=== PATIENT | female | born 1985 | race Caucasian/White ===

== ENCOUNTER 2019-11-14 22:13 | Inpatient (IN) | payer OTHER ==
[~2019-11-14] VITALS: Ht 165.1 cm; Wt 72.6 kg
[~2019-11-14 22:13] MED LIST: RINGERS SOLUTION,LACTATED 1,000 ML IV ONE
[2019-11-14] MEDS ORDERED: METOCLOPRAMIDE HCL 5 MG/ML 2 ML VIAL IVP ONE (22:15)
[2019-11-14] MEDS ORDERED: CITRIC ACID/SODIUM CITRATE 30 ML SOLUTION UDCUP PO ONE (22:15)
[2019-11-14 22:43] LABS: BASOPHILS % (AUTO) 0.5 % (0.0-2.0); EOSINOPHILS % (AUTO) 2.9 % (1.0-6.0); HEMATOCRIT 42.2 % (36-46); LYMPHOCYTES # (AUTO) 2.3 K/uL (1.0-4.8); LYMPHOCYTES % (AUTO) 27.8 % (22.0-44.0); MEAN CORPUSCULAR HEMOGLOBIN 32.2 pg (26.0-34.0); MEAN CORPUSCULAR HGB CONC 33.1 G/dL (31.0-37.0); MEAN CORPUSCULAR VOLUME 97 fL (80-100); MONOCYTES # (AUTO) 1.1 K/uL (0.1-1.0); MONOCYTES % (AUTO) 13.4 % (2.0-9.0); NEUTROPHILS # (AUTO) 4.5 K/uL (1.8-7.7); NEUTROPHILS % (AUTO) 55.4 % (40.0-70.0); PLATELET COUNT (AUTO) 145 K/uL (150-450); RED BLOOD CELL COUNT(AUTO) 4.34 MIL/uL (4.00-5.20); RED CELL DISTRIBUTION WIDTH 14.1 % (11.5-14.5)
[2019-11-15 00:01] VITALS: BP 111/61
[2019-11-15] MEDS ORDERED: PNV1TABL89 PO (00:35)
[2019-11-15] MEDS ORDERED: ACETAMINOPHEN 1000 MG/ISO-OSM 100 ML IV ONE (06:59)
[2019-11-15] MEDS ORDERED: MORPHINE SULFATE/PF 1 MG/ML 10 ML AMP ONE (06:59)
[2019-11-15] MEDS ORDERED: FentaNYL CITRATE-PF 100 MCG/2 ML VIAL ONE (06:59)
[2019-11-15] MEDS ORDERED: BUPIVACAINE HCL/DEX-WATER/PF 0.75% 2 ML AMP ONE (06:59)
[2019-11-15] MEDS ORDERED: MORPHINE SULFATE 10 MG/ML SYRINGE IVP PRN (07:30)
[2019-11-15] MEDS ORDERED: DiphenhydrAMINE HCL 50 MG/ML VIAL IVP PRN (07:30)
[2019-11-15] MEDS ORDERED: FentaNYL CITRATE-PF 100 MCG/2 ML VIAL IVP PRN ×2 (07:30)
[2019-11-15] MEDS ORDERED: ONDANSETRON HCL 4 MG/2 ML VIAL IVP PRN ×2 (07:30)
[2019-11-15] MEDS ORDERED: NALOXONE HCL 0.4 MG/ML VIAL IVP PRN (07:30)
[2019-11-15] MEDS ORDERED: NALBUPHINE HCL 10 MG/ML VIAL IVP PRN ×2 (07:30)
[2019-11-15] MEDS ORDERED: OXYGEN THERAPY IH SCH ×2 (08:00)
[2019-11-15] MEDS ORDERED: ACETAMINOPHEN/CODEINE 300-30 MG TABLET PO PRN ×2 (09:15)
[2019-11-15] MEDS ORDERED: LANOLIN 7 GM OINTMENT TP PRN (09:15)
[2019-11-15] MEDS: DEXTROSE 5%-0.45% SODIUM CHL 1,000 ML IV SCH ×3 (12:50→23:28)
[2019-11-15] MEDS: KETOROLAC TROMETHAMINE 30 MG/ML VIAL IVP SCH ×2 (14:24→20:30)
[2019-11-15] MEDS: ACETAMINOPHEN 1000 MG/ISO-OSM 100 ML IV SCH (16:15)
[2019-11-15] MEDS: MAGNESIUM HYDROXIDE SUSPENSION 30 ML UDCUP PO SCH (21:47)
[2019-11-16] MEDS: ACETAMINOPHEN 1000 MG/ISO-OSM 100 ML IV SCH (00:57)
[2019-11-16] MEDS: IBUPROFEN 800 MG TABLET PO SCH ×4 (02:22→19:52)
[2019-11-16] MEDS: DEXTROSE 5%-0.45% SODIUM CHL 1,000 ML IV SCH (04:12)
[2019-11-16] MEDS ORDERED: OXYTOCIN 10 UNITS/ML VIAL IM ONE (06:09)
[2019-11-16] MEDS ORDERED: ONDANSETRON HCL 4 MG/2 ML VIAL IVP ONE (06:09)
[2019-11-16] MEDS ORDERED: DEXAMETHASONE SOD PHOS 4 MG/ML VIAL IVP ONE (06:09)
[2019-11-16] MEDS: MAGNESIUM HYDROXIDE SUSPENSION 30 ML UDCUP PO SCH ×2 (08:17→19:53)
[2019-11-17] MEDS: IBUPROFEN 800 MG TABLET PO SCH ×3 (01:54→22:20)
[2019-11-17] MEDS: MAGNESIUM HYDROXIDE SUSPENSION 30 ML UDCUP PO SCH (09:00)
[2019-11-17] MEDS ORDERED: ACETAMINOPHEN 1000 MG/ISO-OSM 100 ML IV ONE (10:00)
[2019-11-17] MEDS ORDERED: RINGERS SOLUTION,LACTATED 1,000 ML IV ONE (10:00)
[2019-11-18] MEDS: IBUPROFEN 800 MG TABLET PO SCH ×2 (06:24→12:10)
[2019-11-18] MEDS ORDERED: RINGERS SOLUTION,LACTATED 1,000 ML IV ONE (08:24)
[2019-11-18] MEDS ORDERED: IBUP-2071 PO (10:22)
[2019-11-18] MEDS ORDERED: DOCU-275 PO (10:23)
== END 2019-11-18 14:30 | disposition home or self-care (01) | DRG 788 ==
LOC: 4S 22:13 → OBSVTOIN 22:13
PROVIDERS: ADMIT Obstetrics & Gynecology; ATTEND Obstetrics & Gynecology
PROC: 10D00Z1 Extraction of Products of Conception, Low, Open Approach (ICD-10-PCS; principal; 2019-11-15)
DX: O34.211 Maternal care for low transverse scar from previous cesarean delivery (principal); Z20.828 Contact with and (suspected) exposure to other viral communicable diseases; Z3A.39 39 weeks gestation of pregnancy; Z37.0 Single live birth
CPT/HCPCS: 86850; 86900; 86901; 87081; 87635; J0131; J0690; J1100; J1885; J2405; J2590; J2765; J3010; J3490; J7120